=== PATIENT | female | born 1960 | race Caucasian/White ===

== ENCOUNTER 2022-12-11 15:43 | Outpatient (REF) | payer BC, SELFPAY ==
[2022-12-14 08:07] LABS: Lutenizing Hormone 57.9 mIU/mL; Prolactin 9.5 ng/mL
[2022-12-18 18:44] LABS: Progesterone <0.1 ng/mL
[2022-12-22 23:43] LABS: Estradiol, Ultrasensitive 6 pg/mL
== END 2022-12-11 15:44 | disposition home or self-care (01) ==
LOC: HO.MANLDS 15:43
PROVIDERS: Visit Provider Physician Assistant
DX: N95.1 Menopausal and female climacteric states (principal)
CPT/HCPCS: 36415; 82670; 82681; 83001; 83002; 84144; 84146